=== PATIENT | female | born 1970 | race African-American/Black ===

== ENCOUNTER 2018-03-14 10:43 | Emergency (ER) | payer OTHER ==
[2018-03-14 10:48] VITALS: TEMP 98.3
[2018-03-14] MEDS ORDERED: IPRATROPIUM-ALBUTEROL 3 ML NEB INHALATION STA ×3 (10:55→13:45)
[2018-03-14] MEDS ORDERED: methylPREDNISolone SOD SUCCI 125 MG/2 ML VIAL IV STA (11:30)
[2018-03-14] MEDS ORDERED: SODIUM CHLORIDE 0.9% 1,000 ML IV STA ×2 (11:30)
--- NOTE | 2018-03-14 11:33 | ED ---
General Adult HPI - General Chief complaint: Shortness of Breath Stated complaint: Sob Time Seen by Provider: 03/14/18 10:55 Source: patient, RN notes reviewed Mode of arrival: wheelchair Limitations: no limitations - History of Present Illness Initial comments: Patient is a pleasant 47-year-old female presenting to the emergency department with difficulty breathing. Patient does have a known history of asthma with similar symptoms previously. Symptoms have been present for the past 4 days however much worse today. Patient does have cough occasional yellow sputum. Patient does have difficulty in breathing and wheezing. No chest pain. No upper respiratory or sinus symptoms. No leg pain or leg swelling. No fevers. - Related Data Home Medications Medication Instructions Recorded Confirmed Albuterol Inhaler [Ventolin Hfa 1 - 2 puff INHALATION RT-Q6H PRN 03/14/18 Inhaler] Albuterol Nebulized [Ventolin 2.5 mg INHALATION RT-QID PRN 03/14/18 03/14/18 Nebulized] Amiodarone [Cordarone] 200 mg PO DAILY 03/14/18 03/14/18 Aspirin EC [Ecotrin Low Dose] 81 mg PO DAILY 03/14/18 03/14/18 Atorvastatin [Lipitor] 40 mg PO DAILY 03/14/18 03/14/18 Carvedilol [Coreg] 12.5 mg PO BID 03/14/18 03/14/18 Elviteg/Cob/Emtri/Tenof Alafen 1 tab PO DAILY 03/14/18 03/14/18 [Genvoya Tablet] Furosemide [Lasix] 40 mg PO DAILY PRN 03/14/18 03/14/18 HYDROcodone/APAP 10-325MG [[place] 1 tab PO QID PRN 03/14/18 03/14/18 10-325] Ibuprofen [Motrin] 800 mg PO TID PRN 03/14/18 03/14/18 Lisinopril [Zestril] 5 mg PO DAILY 03/14/18 03/14/18 Potassium Chloride ER [K-Dur 20] 20 meq PO DAILY PRN 03/14/18 03/14/18 clonazePAM [KlonoPIN] 1 mg PO HS 03/14/18 03/14/18 Allergies Allergy/AdvReac Type Severity Reaction Status Date / Time No Known Allergies Allergy Verified 03/14/18 13:12 Review of Systems ROS Statement: Those systems with pertinent positive or pertinent negative responses have been documented in the HPI. ROS Other: All systems not noted in ROS Statement are negative. Constitutional: Denies: fever, chills Eyes: Denies: eye pain ENT: Denies: ear pain Respiratory: Reports: cough, dyspnea Cardiovascular: Denies: chest pain Endocrine: Denies: fatigue Gastrointestinal: Denies: abdominal pain Genitourinary: Denies: dysuria Musculoskeletal: Denies: back pain Skin: Denies: rash Neurological: Denies: weakness Past Medical History Past Medical History: Asthma, Heart Failure Additional Past Medical History / Comment(s): HIV positive-on antivirals History of Any Multi-Drug Resistant Organisms: None Reported Past Surgical History: Appendectomy, Back Surgery, Cholecystectomy, Orthopedic Surgery Past Psychological History: No Psychological Hx Reported Smoking Status: Current every day smoker Past Alcohol Use History: None Reported Past Drug Use History: None Reported General Exam Limitations: no limitations General appearance: alert, in no apparent distress Head exam: Present: atraumatic Eye exam: Present: PERRL, other (Disconjugate gaze) ENT exam: Present: normal oropharynx Neck exam: Present: normal inspection Respiratory exam: Present: wheezes, decreased breath sounds Cardiovascular Exam: Present: regular rate, normal rhythm GI/Abdominal exam: Present: soft. Absent: tenderness Extremities exam: Present: normal inspection. Absent: pedal edema, calf tenderness Neurological exam: Present: alert Psychiatric exam: Present: normal affect, normal mood Skin exam: Present: normal color Course Vital Signs 03/14/18 03/14/18 03/14/18 10:46 11:00 11:09 Temperature 98.3 F Pulse Rate 101 H 81 92 Respiratory 24 Rate Blood Pressure 128/55 O2 Sat by Pulse 84 L Oximetry 03/14/18 03/14/18 03/14/18 11:48 11:58 12:07 Temperature Pulse Rate 69 77 81 Respiratory 20 Rate Blood Pressure 75/46 O2 Sat by Pulse 99 Oximetry 03/14/18 13:33 Temperature Pulse Rate 77 Respiratory 20 Rate Blood Pressure 80/54 O2 Sat by Pulse 93 L Oximetry EKG Findings - EKG Comments: EKG Findings:: Sinus rhythm at 80. First-degree AV block with a CO of 226. QRS 98. QT 422. QTC 486. Normal axis. Normal QRS. No acute ST change Medical Decision Making - Medical Decision Making Patient reevaluated and only somewhat improved. Concern exists regarding patient's continued poor pulmonary status. Patient has some improvement of air exchange however is diminished still overall. There is continued wheezing. In addition to this pulse ox is 93% on room air. Patient is somewhat hypotensive as well. Last to blood pressures were systolic of 80 and 88. Patient is recommended admission. Patient refuses admission. Patient does demonstrate medical decision making. There is another female present with her as well. Patient states her children that she needs to take care of. Patient needs to go back home to [place]. Patient and female accompanying her are made aware of strong concern regarding patient's condition and chest x-ray. They are aware the patient couldn't get worse and could from this. They are aware that patient would need to leave AGAINST MEDICAL ADVICE. They are made aware again that this is a strong recommendation for admission. Patient is recommended to have further diagnostic tests as well as treatment and inpatient setting. This will include specialist consultation. Despite repeated attempts to have patient agreed to admission she still refuses. They state they need to leave for [place] right away. Patient is receptive to a dose of antibiotics and nebulizer prior to leaving AGAINST MEDICAL ADVICE. Patient is advised to go directly to the hospital as soon as she gets into [place], even before she goes home. Patient is advised to stop at the hospital in [place] at any time if she starts getting worse. She is advised they can call our hospital for medical records. Patient does seem to be receptive to this part. - Lab Data Result diagrams: 03/14/18 11:05 03/14/18 11:05 Lab Results 03/14/18 03/14/18 Range/Units 11:05 11:05 WBC 12.2 H (3.8-10.6) k/uL RBC 3.78 L (3.80-5.40) m/uL Hgb 12.4 (11.4-16.0) gm/dL Hct 38.1 (34.0-46.0) % MCV 100.6 H (80.0-100.0) fL MCH 32.7 (25.0-35.0) pg MCHC 32.5 (31.0-37.0) g/dL RDW 13.6 (11.5-15.5) % Plt Count 156 (150-450) k/uL Neutrophils % 85 % Lymphocytes % 9 % Monocytes % 4 % Eosinophils % 2 % Basophils % 0 % Neutrophils # 10.4 H (1.3-7.7) k/uL Lymphocytes # 1.0 (1.0-4.8) k/uL Monocytes # 0.5 (0-1.0) k/uL Eosinophils # 0.2 (0-0.7) k/uL Basophils # 0.0 (0-0.2) k/uL Sodium 139 (137-145) mmol/L Potassium 4.5 (3.5-5.1) mmol/L Chloride 109 H (98-107) mmol/L Carbon Dioxide 24 (22-30) mmol/L Anion Gap 6 mmol/L BUN 15 (7-17) mg/dL Creatinine 0.73 (0.52-1.04) mg/dL Est GFR (CKD-EPI)AfAm >90 (>60 ml/min/1.73 sqM) Est GFR (CKD-EPI)NonAf >90 (>60 ml/min/1.73 sqM) Glucose 125 H (74-99) mg/dL Calcium 8.7 (8.4-10.2) mg/dL Total Bilirubin 0.8 (0.2-1.3) mg/dL AST 42 H (14-36) U/L ALT 27 (9-52) U/L Alkaline Phosphatase 87 (38-126) U/L Total Protein 6.0 L (6.3-8.2) g/dL Albumin 3.1 L (3.5-5.0) g/dL - Radiology Data Radiology results: image reviewed (Chest x-ray shows some cardiomegaly. Diffuse airspace disease that could represent pulmonary edema, ARDS, inhalation , or vasculitis) Disposition Clinical Impression: Dyspnea Disposition: Left Against Medical Advice Condition: Serious Instructions: Asthma (ED) Additional Instructions: You're leaving AGAINST MEDICAL ADVICE. You're strongly advised to reconsider staying in the hospital. Please return at any time for worsening symptoms or consideration for admission. If you do decide to head towards home at this time , please head directly to the hospital. Please stop at any hospital in [place] at any time if your symptoms worsen. Is patient prescribed a controlled substance at d/c from ED?: No Referrals: Jasbir Esquivel MD [STAFF PHYSICIAN] - 1-2 days Leobardo Taylor MD [STAFF PHYSICIAN] - 1-2 days Time of Disposition: 13:52
--- NOTE | 2018-03-14 11:48 | XR ---
EXAMINATION TYPE: XR chest 2V DATE OF EXAM: 03/14/2018 COMPARISON: None HISTORY: 47-year-old female difficulty breathing, shortness of breath TECHNIQUE: PA and lateral views FINDINGS: Heart moderately enlarged. Left anterior chest wall AICD generator with right ventricular leads. Diff use airspace disease is present. No significant pleural effusion on the lateral view. ACDF hardware. IMPRESSION: 1. Moderate cardiomegaly. Diffuse airspace disease probably represent pulmonary edema. 2. Given the lack of pleural effusions, consider other etiologies, for example, ARDS, toxic inhalatio nal injury, and DAH/vasculitis.
[2018-03-14 11:50] LABS: Basophils % (A) 0 %; Eosinophils # (A) 0.2 k/uL (0-0.7); Eosinophils % (A) 2 %; HCT 38.1 % (34.0-46.0); HGB 12.4 gm/dL (11.4-16.0); Lymphocytes % (A) 9 %; MCH 32.7 pg (25.0-35.0); MCHC 32.5 g/dL (31.0-37.0); MCV 100.6 fL (80.0-100.0); Mean Platelet Volume 7.8; Monocytes # (A) 0.5 k/uL (0-1.0); Monocytes % (A) 4 %; Neutrophils # (A) 10.4 k/uL (1.3-7.7); Neutrophils % (A) 85 %; Platelet Count 156 k/uL (150-450); RBC 3.78 m/uL (3.80-5.40); RDW 13.6 % (11.5-15.5); WBC 12.2 k/uL (3.8-10.6)
[2018-03-14 11:53] LABS: Albumin 3.1 g/dL (3.5-5.0); Anion Gap 6 mmol/L; Calcium 8.7 mg/dL (8.4-10.2); Carbon Dioxide 24 mmol/L (22-30); Chloride 109 mmol/L (98-107); Glucose 125 mg/dL (74-99); Sodium 139 mmol/L (137-145); Total Bilirubin 0.8 mg/dL (0.2-1.3)
[2018-03-14 11:57] LABS: ALT 27 U/L (9-52); AST 42 U/L (14-36); Alkaline Phosphatase 87 U/L (38-126); Blood Urea Nitrogen 15 mg/dL (7-17); Potassium 4.5 mmol/L (3.5-5.1)
[2018-03-14] MEDS ORDERED: cefTRIAXone IN SWFI 1,000 MG/10 ML SYRINGE IVP STA (13:45)
[2018-03-14] MEDS ORDERED: AZITHROMYCIN 500 MG TAB PO STA (13:45)
[2018-03-14 14:27] VITALS: BP 87/56; PULSE 88; RESP 22
== END 2018-03-14 14:20 | disposition left against medical advice (07) ==
LOC: EC 10:43
DX: R06.00 Dyspnea, unspecified (principal); R05 Cough; I95.9 Hypotension, unspecified; J45.909 Unspecified asthma, uncomplicated; I50.9 Heart failure, unspecified; Z21 Asymptomatic human immunodeficiency virus [HIV] infection status; F17.200 Nicotine dependence, unspecified, uncomplicated; Z79.82 Long term (current) use of aspirin; Z79.899 Other long term (current) drug therapy; Z53.29 Procedure and treatment not carried out because of patient's decision for other reasons
CPT/HCPCS: 36415; 94640 ×2; 93005; 80053; 85025; 71046; 99285; 96374; 96375; 96361 ×2; J2930; J0696